=== PATIENT | female | born 1950 | race Caucasian/White ===

== ENCOUNTER → 2017-07-14 | Outpatient (CLI) | payer OTHER, MEDICAID | LOC: CIMAGING 10:48 | DX: Z12.31 Encounter for screening mammogram for malignant neoplasm of breast (principal) | CPT/HCPCS: G0202 ==

== ENCOUNTER 2018-01-08 13:25 | Emergency (ER) | payer OTHER, MEDICAID ==
[2018-01-08] MEDS ORDERED: ACETAMINOPHEN 500 MG TAB PO ONE (13:53)
[2018-01-08 14:42] LABS: PLATELET COUNT 230 10^3/uL (150-400)
[2018-01-08 14:53] LABS: INR 2.78 (0.83-1.16); PROTIME(PATIENT) 28.6 SEC (12.0-15.0)
--- NOTE | 2018-01-08 15:38 | EDPHY ---
H & P Time Seen by Provider: 01/08/18 13:27 HPI/ROS: 67-year-old female presents complaining of fall landing on her face earlier today, now with complaint of a black eye and swelling around her eye on the left. No loss of consciousness, no nausea no vomiting. No headache. Patient is on Coumadin for an aortic valve replacement. No difficulty with vision. Review of systems General no fever no chills no weakness HEENT no eye pain no eye discharge. No eye redness, no sore throat Respiratory no cough, no shortness of breath Cardiac no chest pain, no peripheral edema GI no abdominal pain, no diarrhea, no constipation, no nausea, no vomiting no flank pain, no hematuria, no dysuria Musculoskeletal no myalgias, no joint pain Heme positive easy bruising, positive easy bleeding Endo no polyuria, no polydipsia Skin no rashes, no pruritus Neuro no syncope, no dizziness, no headaches Psych is no suicidal ideation, no homicidal ideation Past Medical/Surgical History: Hypertension Aortic valve replacement Social History: Denies alcohol or drug use Smoking Status: Never smoked Physical Exam: 67-year-old female alert and oriented no acute distress nontoxic appearance, afebrile HEENT left periorbital ecchymosis with tenderness along superior orbital rim, otherwise normocephalic, extraocular muscles intact, anicteric No Ross's, no hemotympanum Oropharynx negative for erythema negative exudate, tolerating her own secretions Neck supple no meningismus Lungs clear to auscultation bilaterally Heart regular rate and rhythm, with systolic murmur Abdomen nondistended normoactive bowel sounds soft nontender Back no CVA tenderness, no step-offs, no spinal tenderness Extremities no cyanosis clubbing or edema Neuro alert and oriented, no focal deficits Constitutional: Initial Vital Signs Heart Rate 76 01/08/18 13:38 Respiratory Rate 16 01/08/18 13:38 Blood Pressure 204/83 H 01/08/18 13:38 O2 Sat (%) 94 01/08/18 13:38 O2 Delivery Mode Room Air Allergies/Adverse Reactions: No Known Allergies Allergy (Unverified 01/08/18 13:40) Home Medications: Medication Instructions Recorded Coumadin 01/08/18 Losartan Potassium 01/08/18 Omeprazole 01/08/18 Probiotic 01/08/18 Sulfasalazine 01/08/18 Medical Decision Making - Diagnostics Imaging Results: Imaging Impressions Head CT 01/08/18 13:48 Impression: 1. No acute skull fracture or intracranial hemorrhage. 2. Large left supraorbital frontal scalp hematoma. Findings discussed with Emergency Department physician, Dr. Louise Amador on January 08, 2018 at 1443 hours. ED Course/Re-evaluation: Patient seen and evaluated for facial injury. CT scan Negative for intracranial bleed negative for fracture Positive soft tissue swelling consistent with hematoma Impression Left periorbital ecchymosis Plan Rest, ice Follow-up with primary care physician Differential Diagnosis: Differential diagnosis considered but not limited to: Periorbital ecchymosis, black eye, intracranial bleed, orbital fracture, sinus fracture - Data Points Laboratory Results: Laboratory Results 01/08/18 14:35 01/08/18 14:35 01/08/18 01/08/18 01/08/18 14:35 14:35 14:35 WBC 4.79 10^3/uL 10^3/uL (3.80-9.50) RBC 4.23 10^6/uL 10^6/uL (4.18-5.33) Hgb 12.9 g/dL g/dL (12.6-16.3) Hct 39.6 % % (38.0-47.0) MCV 93.6 fL fL (81.5-99.8) MCH 30.5 pg pg (27.9-34.1) MCHC 32.6 g/dL g/dL (32.4-36.7) RDW 15.2 % % (11.5-15.2) Plt Count 230 10^3/uL 10^3/uL (150-400) MPV 9.8 fL fL (8.7-11.7) Neut % (Auto) 71.3 % % (39.3-74.2) Lymph % (Auto) 14.8 % L % (15.0-45.0) Converse % (Auto) 12.1 % % (4.5-13.0) Eos % (Auto) 1.0 % % (0.6-7.6) Baso % (Auto) 0.6 % % (0.3-1.7) Nucleat RBC Rel Count 0.0 % % (0.0-0.2) Absolute Neuts (auto) 3.41 10^3/uL 10^3/uL (1.70-6.50) Absolute Lymphs (auto) 0.71 10^3/uL L 10^3/uL (1.00-3.00) Absolute Monos (auto) 0.58 10^3/uL 10^3/uL (0.30-0.80) Absolute Eos (auto) 0.05 10^3/uL 10^3/uL (0.03-0.40) Absolute Basos (auto) 0.03 10^3/uL 10^3/uL (0.02-0.10) Absolute Nucleated RBC 0.00 10^3/uL 10^3/uL (0-0.01) Immature Gran % 0.2 % % (0.0-1.1) Immature Gran # 0.01 10^3/uL 10^3/uL (0.00-0.10) PT 28.6 SEC H SEC (12.0-15.0) INR 2.78 H (0.83-1.16) Sodium 142 mEq/L mEq/L (135-145) Potassium 3.6 mEq/L mEq/L (3.3-5.0) Chloride 101 mEq/L mEq/L (97-110) Carbon Dioxide 31 mEq/l mEq/l (22-31) Anion Gap 10 mEq/L mEq/L (8-16) BUN 18 mg/dL mg/dL (7-23) Creatinine 0.6 mg/dL mg/dL (0.6-1.0) Estimated GFR > 60 Glucose 103 mg/dL H mg/dL (70-100) Calcium 9.4 mg/dL mg/dL (8.5-10.4) Medications Given: Discontinued Medications Acetaminophen (Tylenol) 1,000 mg PO EDNOW ONE Stop: 01/08/18 13:54 Last Admin: 01/08/18 13:58 Dose: 1,000 mg Departure - Departure Disposition: Home, Routine, Self-Care Clinical Impression: Periorbital ecchymosis of left eye Condition: Good Instructions: Black Eye (ED) Additional Instructions: Follow up with your primary doctor next week. Referrals: [facility] [Other] - As per Instructions
[2018-01-08 19:09] VITALS: BP 137/81
== END 2018-01-08 15:45 | disposition home or self-care (01) ==
LOC: CED 13:25
DX: S00.83XA Contusion of other part of head, initial encounter (principal); I10 Essential (primary) hypertension; Z79.01 Long term (current) use of anticoagulants; W19.XXXA Unspecified fall, initial encounter
CPT/HCPCS: 70450-PO; 80048-PO; 85025-PO; 85610-PO

== ENCOUNTER → 2018-06-20 | Outpatient (CLI) | payer OTHER, MEDICAID | LOC: CIMAGING 07:47 | DX: Z12.31 Encounter for screening mammogram for malignant neoplasm of breast (principal); Z53.8 Procedure and treatment not carried out for other reasons ==